=== PATIENT | male | born 1970 | race Caucasian/White ===

== ENCOUNTER 2016-05-01 10:08 | Emergency (ER) | payer SELFPAY ==
[~2016-05-01 10:08] MED LIST: ALBUTEROL17 GM INH; BENZONATATE PO; FLEXERIL10 MG PO; FLOMAX0.4 M1 PO; GUAIFENESIN200 M1 PO; HYDROCODON-ACE1 EAC7 PO; IBUPROFEN600 MG PO; LEVAQUIN PO; LORTAB 5/500 TA1 TA1 PO; MEDROL DOSEPAK4 MG PO; MEDROL PO; NAPROSYN500 MG PO; NO MEDICATIONS; PHENERGAN25 MG PO; TORADOL10 MG PO; VIBRAMYCIN100 M1 DOB; [UNRECOGNIZED DRUG - REMARK]
== END 2016-05-01 10:42 | disposition home or self-care (01) ==
LOC: SED 10:08
DX: S16.1XXA Strain of muscle, fascia and tendon at neck level, initial encounter (principal); F17.210 Nicotine dependence, cigarettes, uncomplicated; V49.40XA Driver injured in collision with unspecified motor vehicles in traffic accident, initial encounter; Y93.89 Activity, other specified; Y92.410 Unspecified street and highway as the place of occurrence of the external cause
CPT/HCPCS: 96372; 99283; J1885